=== PATIENT | female | born 1980 | race Caucasian/White ===

== ENCOUNTER 2017-11-12 21:35 | Emergency (ER) | payer MEDICAID, SELFPAY ==
[2017-11-12 21:37] VITALS: BP 164/105; PULSE 100; RESP 18; TEMP 37.3; O2SAT 98; BMI 21.8
--- NOTE | 2017-11-12 22:53 | ED.RN ---
PT LEFT WITHOUT BEING SEEN.
== END 2017-11-12 22:55 | disposition left against medical advice (07) ==
LOC: ED 23:44
PROVIDERS: Emergency Provider Emergency Medicine; Family Provider Student in an Organized Health Care Education/Training Program; PCP Student in an Organized Health Care Education/Training Program
DX: R69 Illness, unspecified (principal)

== ENCOUNTER 2017-12-13 16:57 | Emergency (ER) | payer MEDICAID, SELFPAY ==
[2017-12-13 16:58] VITALS: BP 166/96; PULSE 89; RESP 18; TEMP 36.6; O2SAT 99; BMI 21.6
--- NOTE | 2017-12-13 17:40 | ED.VISSUMM ---
- ER Visit Summary Date of Service: 12/13/17 Chief Complaint: Dental pain History of Present Illness: The patient is a 36 F who presents with dental pain that began today. Patient states a piece of her right upper third molar broke off today while she was eating. Patient states this happened approximately 1 hour prior to arrival. Patient denies any fevers or chills. Patient denies any difficulty breathing or difficulty swallowing. Patient states she was unable to see a dentist today. Physical Examination: Vital signs are stable. Patient is afebrile. Patient is in no acute distress. Oral mucosa is pink and moist. Oropharynx is clear. There is a class II dental fracture of the right upper third molar (#1). Neck is supple. Trachea is midline. There is no JVD noted. There is no sublingual edema noted. There is no cervical adenopathy noted. The remaining physical exam is within normal limits. Emergency Department Course and Treatment: Patient was given a prescription for Pen-Vee K. Patient was instructed to follow-up with the dentist in 3-5 days. Patient understood and was agreeable with the plan. All questions were answered. Disposition: Discharged home Impression: Dental fracture This note was generated with [employer] dictation software. It may contain incorrect words, spelling, and punctuation that were not noted in review of the chart prior to signing ED Disposition - Plan for ED Patient: Disposition: Home or Assisted Living Chief Complaint: Dental Diagnosis: Dental caries Instructions: ED Tooth Pain, ED Cavity Dental Prescriptions: Penicillin V Potassium 500 mg PO 4X/DAY #40 tab Referrals: Lonnie Coon DO [Primary Care Provider] -
== END 2017-12-13 18:27 | disposition home or self-care (01) ==
PROVIDERS: Emergency Provider Emergency Medicine; Family Provider Student in an Organized Health Care Education/Training Program; PCP Student in an Organized Health Care Education/Training Program
DX: S02.5XXA Fracture of tooth (traumatic), initial encounter for closed fracture (principal); X58.XXXA Exposure to other specified factors, initial encounter; Y93.9 Activity, unspecified; Y92.89 Other specified places as the place of occurrence of the external cause; Y99.9 Unspecified external cause status; K21.9 Gastro-esophageal reflux disease without esophagitis
CPT/HCPCS: 99282

== ENCOUNTER 2018-04-20 17:13 | Emergency (ER) | payer MEDICAID, SELFPAY ==
[2018-04-20 17:14] VITALS: BP 161/95; PULSE 83; RESP 16; TEMP 36.8; O2SAT 97; BMI 20.1
--- NOTE | 2018-04-20 17:48 | ED.VISSUMM ---
- ER Visit Summary Date of Service: 04/20/18 Chief Complaint: [Left leg pain] History of Present Illness: The patient is a 37 F [presents the emergency department complaint of left leg pain that started about 1 week ago. Patient states that her basement flooded and she was doing work in the basement to clean it up and the following morning woke up and had a lot of discomfort into her left buttock and down her left leg. Patient will have pain intermittently shooting down to her foot and occasionally will have some numbness and tingling. Patient denies any weakness in the extremity. She denies any change in bowel or bladder function. She denies any saddle anesthesia. Patient denies any recent travel or surgery. She has no history of PE or DVT. She is not on any oral contraceptive.] Physical Examination: [HEENT-PERRLA, EOMI. Cranial nerves II through XII grossly intact. TMs clear. Mucous membranes moist. No adenopathy. Cardiovascular-regular rate and rhythm without murmur or ectopy Lungs-clear to auscultation, chest wall stable without crepitus or subcu emphysema Abdomen-normoactive bowel sounds, soft, nontender, no rebound or rigidity, no peritoneal signs. Back exam-patient has no tenderness over the thoracic or lumbar spine. Patient does have tenderness palpation over the left buttock and piriformis that reproduces her pain. Patient has a positive straight leg raise with pain at about 45 degrees. Deep tendon reflexes are plus 2 out of 4 bilaterally at the patella and Achilles. Patient has normal L5 extension. Patient has normal sensation to light touch. Extremities-intact ?4, normal range of motion, normal pulses, atraumatic] Test Results: [None indicated] Emergency Department Course and Treatment: [] Treatment Plan: [Patient given a prescription for Naprosyn, [place], and Flexeril] Disposition: [Discharged home in stable condition] Impression: [Acute sciatica] This note was generated with [employer] dictation software. It may contain incorrect words, spelling, and punctuation that were not noted in review of the chart prior to signing ED Disposition - Plan for ED Patient: Referrals: Lonnie Coon DO [Primary Care Provider] -
--- NOTE | 2018-04-20 17:56 | ED.DCSUM_ITS ---
- ER Visit Summary Date of Service: 04/20/18 Chief Complaint: [Left leg pain] History of Present Illness: The patient is a 37 F [presents the emergency department complaint of left leg pain that started about 1 week ago. Patient states that her basement flooded and she was doing work in the basement to clean it up and the following morning woke up and had a lot of discomfort into her left buttock and down her left leg. Patient will have pain intermittently shooting down to her foot and occasionally will have some numbness and tingling. Patient denies any weakness in the extremity. She denies any change in bowel or bladder function. She denies any saddle anesthesia. Patient denies any recent travel or surgery. She has no history of PE or DVT. She is not on any oral contraceptive.] Physical Examination: [HEENT-PERRLA, EOMI. Cranial nerves II through XII grossly intact. TMs clear. Mucous membranes moist. No adenopathy. Cardiovascular-regular rate and rhythm without murmur or ectopy Lungs-clear to auscultation, chest wall stable without crepitus or subcu emphy sema Abdomen-normoactive bowel sounds, soft, nontender, no rebound or rigidity, no peritoneal signs. Back exam-patient has no tenderness over the thoracic or lumbar spine. Patient does have tenderness palpation over the left buttock and piriformis that reproduces her pain. Patient has a positive straight leg raise with pain at about 45 degrees. Deep tendon reflexes are plus 2 out of 4 bilaterally at the patella and Achilles. Patient has normal L5 extension. Patient has normal sensation to light touch. Extremities-intact ?4, normal range of motion, normal pulses, atraumatic] Test Results: [None indicated] Emergency Department Course and Treatment: [] Treatment Plan: [Patient given a prescription for Naprosyn, [place], and Flexeril] Disposition: [Discharged home in stable condition] Impression: [Acute sciatica] This note was generated with [employer] dictation software. It may contain incorrect words, spelling, and punctuation that were not noted in review of the chart prior to signing ED Disposition - Plan for ED Patient: Referrals: Lonnie Coon DO [Primary Care Provider] -
--- NOTE | 2018-04-20 17:56 | ED.DEP ---
ED Disposition - Plan for ED Patient: Instructions: ED Sciatica Prescriptions: Hydrocodone Bitart/Apap 5-325 [Vista 5MG-325MG] 1 tab PO Q4H PRN PRN 2 Days #20 tab PRN Reason: Pain Naproxen [Naprosyn] 500 mg PO BID PRN #20 tab Cyclobenzaprine [Flexeril] 10 mg PO TID PRN #20 tab PRN Reason: Muscle Spasm Referrals: Lonnie Coon DO [NON CLINICAL AFFILIATE] - 5-7 Days Angel Nazario MD [STAFF PHYSICIAN] - 5-7 Days
--- NOTE | 2018-04-20 18:01 | DCINST.ED_ITS ---
ED Disposition - Plan for ED Patient: Instructions: ED Sciatica Prescriptions: Hydrocodone Bitart/Apap 5-325 [Bergoo 5MG-325MG] 1 tab PO Q4H PRN PRN 2 Days #20 tab PRN Reason: Pain Naproxen [Naprosyn] 500 mg PO BID PRN #20 tab Cyclobenzaprine [Flexeril] 10 mg PO TID PRN #20 tab PRN Reason: Muscle Spasm Referrals: Lonnie Coon DO [NON CLINICAL AFFILIATE] - 5-7 Days Angel Nazario MD [STAFF PHYSICIAN] - 5-7 Days
== END 2018-04-20 18:06 | disposition home or self-care (01) ==
LOC: ED 17:55
PROVIDERS: Emergency Provider Emergency Medicine
DX: M54.30 Sciatica, unspecified side (principal)
CPT/HCPCS: 99282

== ENCOUNTER 2018-07-24 23:07 | Emergency (ER) | payer MEDICAID, SELFPAY ==
[2018-07-24 23:08] VITALS: BP 138/84; PULSE 90; RESP 15; TEMP 36.6; BMI 22.6
--- NOTE | 2018-07-24 23:33 | ED.DCSUM_ITS ---
- ER Visit Summary Date of Service: 07/24/18 Chief Complaint: Left sciatica History of Present Illness: The patient is a 37 F past medical history of prior sciatica. 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 She states that over the last several days she is developed pain in her left lower back at times radiates down her left buttock and left leg. No weakness or numbness. No bowel or bladder incontinence. No prior back history or surgery. She has had sciatica in the past. Physical Examination: No acute distress vital signs are stable afebrile. HEENT exam unremarkable. Neck nontender. Lungs clear to auscultation bilaterally. H eart regular rhythm no murmur. Abdomen soft nontender. She is moving all 4 extremities. There are neurovascular intact. 5 out of 5 evp and chief operating officer strength. 5 out of 5 dorsi plantar flexion. Positive straight leg raise at the left at about 15 to 30 degrees. Negative on the right. Normal touch sensation. Normal medial thigh sensation. No cauda equina or saddle anesthesia. Back spine is nontender. She has left SI tenderness. Right unremarkable. There is no signs of trauma nor any history of trauma. Test Results: None Emergency Department Course and Treatment: Naproxen p.o. Treatment Plan: Naproxen twice daily 10 days 20 no refill. Ice to the area. Follow-up with her primary care physician in [place] if not improving she may need an MRI. She and I discussed her diagnosis. Disposition: Discharge Impression: Acute left sciatica This note was generated with [employer] dictation software. It may contain incorrect words, spelling, and punctuation that were not noted in review of the chart prior to signing ED Disposition - Plan for ED Patient: Referrals: Care Physician,No Primary [Primary Care Provider] -
--- NOTE | 2018-07-24 23:33 | ED.DEP ---
ED Disposition - Plan for ED Patient: Disposition: Home or Assisted Living Instructions: ED Sciatica Prescriptions: Naproxen 375 mg PO BID #20 tab Referrals: Care Physician,No Primary [Primary Care Provider] - 1 Week if not improving Additional Instructions: Naproxen twice daily with food on your stomach. This is an anti-inflammatory should not down the inflammation and pain. Follow-up your primary care physician. If not improving you may need an MRI. Ice to the area.
[2018-07-24 23:50] VITALS: BP 136/86; PULSE 85; RESP 16; O2SAT 99
[2018-07-24] MEDS: Naproxen 500 MG Tablet PO (23:51)
== END 2018-07-24 23:52 | disposition home or self-care (01) ==
PROVIDERS: Emergency Provider Emergency Medicine
DX: M54.42 Lumbago with sciatica, left side (principal)
CPT/HCPCS: 99283

== ENCOUNTER → 2018-12-27 17:29 | Outpatient (CLI) | payer MEDICAID, SELFPAY ==
[2018-12-27 17:53] LABS: Amphetamine Urine VISTA POSITIVE (<1000 ng/mL); Barbiturate Urine VISTA NEGATIVE (< 200 ng/mL); Benzodiazepine Urine VISTA NEGATIVE (< 200 ng/mL); Cocaine Urine VISTA NEGATIVE (< 300 ng/mL); Ecstacy Urine VISTA NEGATIVE (< 500 ng/mL); Methadone Urine VISTA NEGATIVE (< 300 ng/mL); PCP Urine VISTA NEGATIVE (< 25 ng/mL); THC Urine VISTA POSITIVE (< 50 ng/mL); Vista UDS pH Range 5
== END ==
PROVIDERS: Referring Provider Anesthesiology Pain Medicine; Visit Provider Anesthesiology Pain Medicine
DX: F11.20 Opioid dependence, uncomplicated (principal)
CPT/HCPCS: 80307

== ENCOUNTER 2019-03-19 20:41 | Emergency (ER) | payer MEDICAID, SELFPAY ==
[2019-03-19] VITALS (9 sets, daily range): BP systolic 142–166; BP diastolic 65–106; PULSE 67–108; RESP 14–20; TEMP 37.2; O2SAT 98–100; BMI 19.3
--- NOTE | 2019-03-19 21:01 | ED.VISSUMM ---
- ER Visit Summary Date of Service: 03/19/19 Chief Complaint: Right wrist injury History of Present Illness: The patient is a 38 F who presents with right wrist injury that occurred today. Patient states she was rollerskating when she fell and landed on her right wrist. Patient states her pain is worse with any movement. Patient describes her pain as aching. Patient denies any snapping or popping sensation. Patient denies any head injury or loss of consciousness. Patient denies any other injuries. Physical Examination: Vital signs are stable. Patient is afebrile. Patient is in no acute distress. Oral mucosa is pink and moist. Neck is supple. Trachea is midline. There is no JVD. Musculoskeletal exam reveals tenderness over the right distal radius and wrist. There is some edema. There is no ecchymosis. There is a mild silver fork deformity. Range of motion was limited in all motions of the right wrist secondary to pain. Sensation was intact to light touch in the radial, median, and ulnar areas. Strength is 5/5 in the radial, median, and ulnar areas. Capillary refill is less than 2 seconds in all digits. Radial pulses are equal bilaterally. Test Results: X-rays of the right wrist were obtained. There is a comminuted fracture of the right distal radius. The distal fragment is angulated dorsally. This was interpreted by the radiologist and myself. Emergency Department Course and Treatment: Patient was given a dose of Orwell here. Patient was advised of the risks and benefits of sedation and reduction of her right distal radius. Patient is agreeable with the procedure. All questions were answered. Patient was given a total dose of 80 mg of propofol 4 mg of morphine. Patient was placed on the doctor of naprapathic medicine and nasal cannula oxygen. The right distal radius was reduced and a well-padded short arm AP splint was applied. Patient had no episodes of hypoxia during the procedure. Patient tolerated the procedure well. Patient was alert and oriented x3 after the procedure. Neurovascular exam was intact after placement of the splint. Repeat x-ray was obtained. There is improvement of the alignment of the fracture fragments. Patient was given a prescription for Orwell. Patient was instructed to maintain her splint until she follows up with orthopedics. Patient was instructed to follow-up with Dr. Car, who is on-call for orthopedics, in 3 to 5 days. Patient understood and was agreeable with the plan. All questions were answered. Disposition: Discharge home Impression: 1. Right distal radius fracture 2. Procedural sedation 3. Reduction of fracture by emergency physician This note was generated with [employer] dictation software. It may contain incorrect words, spelling, and punctuation that were not noted in review of the chart prior to signing ED Disposition - Plan for ED Patient: Disposition: Home or Assisted Living Diagnosis: Fracture of right distal radius Instructions: COLLES FRACTURE, Reduction Required Prescriptions: Hydrocodone Bitart/Apap 5-325 [Orwell 5MG-325MG] 1 tab PO Q6H PRN PRN 3 Days #10 tab PRN Reason: Pain Prescription Printed Referrals: NOT,DEFINED [NON-STAFF] - Alida Car DO [STAFF PHYSICIAN] - 3-5 Days
[2019-03-19] MEDS: HYDROcodone Bitartrate/Apap 5/325 Tablet PO (21:25)
--- NOTE | 2019-03-19 21:40 | RAD_ITS ---
STUDY: X-RAY - RIGHT WRIST REASON FOR EXAM: Female, 38 years old. Pain after falling. TECHNIQUE: 3 view(s) of the wrist were obtained. COMPARISON: None. FINDINGS: Acute comminuted fracture of the distal radius, impacted proximally with mild dorsal angulation. Small acute ulnar styloid fracture with medial displacement of the fractured tip. Alignment otherwise anatomic. No other fracture is evident. Normal bony mineralization. Adjacent soft tissue swelling. RAD/Wrist min 3 Views IMPRESSION: Acute comminuted fracture of the distal radius, impacted proximally with mild dorsal angulation. Small acute ulnar styloid fracture with medial displacement of the fractured tip. Electronically Signed: Zaki Duarte, at 22:11 EST Tel , Service support ,
[2019-03-19] MEDS: Morphine 4 MG/ML Syringe IM (22:35)
[2019-03-19] MEDS: Propofol 200 MG/20 ML Vial IV BOLUS (22:52)
--- NOTE | 2019-03-19 22:55 | RAD_ITS ---
STUDY: X-RAY - RIGHT WRIST REASON FOR EXAM: Female, 38 years old. Post reduction. TECHNIQUE: 3 view(s) of the wrist were obtained. COMPARISON: 9:38 PM same date. FINDINGS: Status post close reduction of the distal radial fracture. Alignment is improved with mild residual dorsal angulation. Small ulnar styloid tip fracture again demonstrated. Casting material now overlies the wrist. No new fractures are evident. RAD/Wrist min 3 Views IMPRESSION: Status post close reduction of the distal radial fracture. Alignment is improved with mild residual dorsal angulation. Electronically Signed: Zaki Duarte, at 23:32 EST Tel , Service support ,
== END 2019-03-19 23:19 | disposition home or self-care (01) ==
PROVIDERS: Emergency Provider Emergency Medicine
DX: S52.501A Unspecified fracture of the lower end of right radius, initial encounter for closed fracture (principal); W18.30XA Fall on same level, unspecified, initial encounter; Y93.51 Activity, roller skating (inline) and skateboarding; Y92.89 Other specified places as the place of occurrence of the external cause; Y99.8 Other external cause status
CPT/HCPCS: 25605; 73110; 96372; 99285; A4216

== ENCOUNTER → 2019-03-24 15:02 | Outpatient (CLI) | payer MEDICAID, SELFPAY ==
[2019-03-24 14:59] VITALS: BMI 19.3
--- NOTE | 2019-03-24 15:02 | RAD_ITS ---
STUDY: X-RAY - RIGHT WRIST REASON FOR EXAM: Female, 38 years old. fracture TECHNIQUE: 3 view(s) of the wrist were obtained. COMPARISON: None. FINDINGS: No change in the nondisplaced nonangulated transverse fracture the distal metaphysis of the radius. Normal radiocarpal articulation. Normal distal radioulnar articulation. Normal carpal bones. Normal carpal articulations. Normal carpometacarpal articulation of the thumb. Normal second through fifth carpometacarpal articulations. Normal visualized metacarpal bones. Fiberglas cast a vascular soft tissue and bony detail. RAD/Wrist min 3 Views IMPRESSION: No change in nondisplaced nonangled transverse fracture of the distal metaphysis of the radius. Electronically Signed: Norm Haque MD at 9:38 EST Tel , Service support ,
== END ==
PROVIDERS: Referring Provider Physician Assistant; Visit Provider Physician Assistant
DX: S52.91XA Unspecified fracture of right forearm, initial encounter for closed fracture (principal)
CPT/HCPCS: 73110

== ENCOUNTER → 2019-03-28 15:06 | Outpatient (CLI) | payer MEDICAID, SELFPAY ==
[2019-03-24 14:59] VITALS: BMI 19.3
--- NOTE | 2019-03-28 15:08 | CT_ITS ---
STUDY: CT WRIST WITHOUT CONTRAST RIGHT REASON FOR EXAM: Female, 38 years old. RIGHT WRIST FX- 1 WEEK AGO ROLLER SKATING RADIATION DOSAGE (If Supplied By Facility): CTDIvol = ( 20.42 ) mGy, DLP = ( 373.87 ) mGycm. Individualized dose optimization techniques were used for this CT.? TECHNIQUE: Thorax images of the wrist were obtained from the distal forearm to the distal metacarpals. Sagittal coronal reformatted images are performed. The patient is in a cast. COMPARISON: March 24, 2019 wrist x-ray FINDINGS: There is a comminuted intra-articular fracture of the distal radius with minimal posterior or dorsal displacement of the distal fragments with soft tissue edema. The fracture line extends into the radial and radial carpal joints. There is a trace suggestion of an avulsion injury from the ulnar styloid process. No additional fracture is appreciated. CT/Extremity Upper without Contra IMPRESSION: Comminuted nondisplaced fracture of the distal radius with intra-articular extension. Tiny avulsion injury of the ulnar styloid process. Electronically Signed: Amber Perez MD at 16:47 EST Tel , Service support ,
== END ==
PROVIDERS: Referring Provider Physician Assistant; Visit Provider Physician Assistant
DX: S52.91XA Unspecified fracture of right forearm, initial encounter for closed fracture (principal)
CPT/HCPCS: 73200

== ENCOUNTER → 2019-03-29 | Outpatient (CLI) | payer MEDICAID, SELFPAY ==
[2019-03-24 14:59] VITALS: BMI 19.3
--- NOTE | 2019-03-29 14:38 | RAD_ITS ---
STUDY: X-RAY - RIGHT WRIST REASON FOR EXAM: Follow-up wrist fracture. TECHNIQUE: 3 view(s) of the wrist were obtained. COMPARISON: Radiographs 03/24/2019. FINDINGS: There is no interval change of the comminuted intra-articular fracture of the distal radius. There is a very small avulsion fracture of the ulnar styloid process. Normal radiocarpal articulation. Normal distal radioulnar articulation. Normal carpal bones. Normal carpal articulations. Normal carpometacarpal articulation of the thumb. Normal second through fifth carpometacarpal articulations. Normal visualized metacarpal bones. There is an overlying cast. RAD/Wrist min 3 Views IMPRESSION: No interval change of distal radial fracture. Electronically Signed: Stu Bryant MD at 15:30 EST Tel , Service support ,
== END | disposition home or self-care (01) ==
LOC: HPRAD 14:38
PROVIDERS: Referring Provider Orthopaedic Surgery; Visit Provider Orthopaedic Surgery
DX: S52.571D Other intraarticular fracture of lower end of right radius, subsequent encounter for closed fracture with routine healing (principal)
CPT/HCPCS: 73110

== ENCOUNTER 2019-03-30 12:29 | Day surgery (SDC) | payer MEDICAID, SELFPAY ==
--- NOTE | 2019-03-29 03:03 | HP_ITS ---
insert hnp no changes Intake Vital Signs 03/29/19 BMI 19.3 Intake Visit Reasons: RIGHT WRIST Is patient in pain?: Yes Allergies No Known Allergies Allergy (Verified 03/29/19 14:13) Medications Naproxen 375 mg PO BID #20 tab 07/24/18 [Rx Confirmed 03/29/19] omeprazole 20 mg tablet,delayed release 20 mg PO DAILY 03/29/19 [History Confirmed 03/29/19] PFSH Family History (Updated 03/29/19 @ 14:25 by Sin Porras) Grandmother Breast cancer Social History (Updated 03/29/19 @ 16:08 by Alida Car DO) Smoking Status: Current some day smoker HPI RIGHT WRIST: Surgical H&P: Yes Details: Parts of this documentation were recorded by a scribe, this documentation accurately reflects the service provided and the decisions made by me, Alida Car DO 03/29/19 1410. DENIA SKAGGS is a 38 year old F here today for a followup on her right wrist. She states that she continues to have significant pain. She was unable to sleep last night due to pain. She has kept her splint on at all times. She has been icing. Patient is able to move her fingers. Denies numbness, tingling or other associated symptoms. Patient is taking aleve, tylenol and ibuprofen for pain, which the aleve is helpful. Patient had her CT scan which is here for review. ROS Musc Reports joint pain, Denies joint swelling, Denies stiffness Skin/Breast Reports system reviewed and no additional complaints, except as docu Neuro Yes system reviewed and no additional complaints, except as docu no rhales, rhonchi, wheezing, no abd pain, no audible bruits Ortho Exam Right Wrist/Hand Skin/Wound: Yes Swelling WRIST: patient is in a splint, nvi Left Wrist/Hand Skin/Wound: Yes Swelling Assessment & Plan Problems 1. Other intraarticular fracture of lower end of right radius, subsequent encounter for closed fracture with routine healing S52.571D Plan X-rays were reviewed. There is displacement of the fracture noted compared to recent CT scan. Reviewed the post op restrictions and return to normal activities sooner with surgery. Reviewed the pre-operative plans with the patient. Risks and benefits of the procedure were fully explained, including but not limited to infection, neurovascular injury, continued pain, arthritis, stiffness, need for further surgery, re-injury, DVT, PE, general risks of anesthesia, and loss of limb or life. The patient understands all the risks and does wish to proceed with written consent. Follow up post op or sooner if pain, swelling, numbness or associated symptoms, or concerns develop. All questions answered. Patient in agreement of plan. Orders Orders: Wrist min 3 Views Today S52.578B Coding Level of Care Code Off vis,est,level 4 Diagnoses Other intraarticular fracture of lower end of right radius, subsequent encounter for closed fracture with routine healing S52.571D 03/29/19 1608 <Electronically signed by Alida martinez DO> Date _ Alida Car DO
[2019-03-29 14:47] VITALS: BMI 19.3
[2019-03-30 12:56] LABS: Internal QC Validated? YES +Cl - CLEAR BKGD; Pregnancy, Urine Negative Negative
[2019-03-30 12:58] VITALS: BP 141/71; PULSE 63; RESP 15; TEMP 36.8; O2SAT 99
[2019-03-30] MEDS: Lactated Ringers 1,000 ML 100 ML IV ×2 (13:12→15:46)
--- NOTE | 2019-03-30 14:00 | RAD_ITS ---
STUDY: X-RAY - RIGHT WRIST REASON FOR EXAM: ORIF distal radial fracture. TECHNIQUE: 3 intraoperative images of the wrist were obtained. COMPARISON: Radiographs 03/29/2019. FINDINGS: There is an orthopedic plate and screws transfixing a distal radial fracture in anatomic alignment and position. There is a very small avulsion fracture of the ulnar styloid process. Electronically Signed: Stu Bryant MD at 15:46 EST Tel , Service support , RAD/Wrist min 3 Views
[2019-03-30] MEDS: Cefazolin 2 GM in 0.9% Normal Saline 100 ML IV (14:02)
[2019-03-30] MEDS: Mupirocin Ointment 22gm Tube 1 APPLIC (15:05)
--- NOTE | 2019-03-30 15:16 | DCINST_ITS ---
Discharge Diet: No Restrictions - non weight bearing right arm, keep splint clean/dry/intact, follow up in 2 weeks and call with concerns, Discharge Activity: May Not Drive May shower in (days): 1 Ice area for (Minutes): 20 - Every hour while awake. Weight Bearing Status: Weight bearing as tolerated Keep extremity elevated above heart level: Operative Extremity Call your doctor if your incision/area has: Continuous Slow Oozing, Sudden Increased Bleeding, Increased Pain/ Swelling, Increased Redness, Foul Smelling Discharge Call your doctor if you observe: Fever of 101 or Higher, Coldness, Increased Pain, Numbness or Tingling, Change in Color, Calf discomfort Allergies/Adverse Reactions: Allergies No Known Allergies Allergy (Verified 03/30/19 12:57) Medications to take at Discharge Naproxen 375 mg PO BID #20 tab 07/24/18 omeprazole 20 mg tablet,delayed release 20 mg PO DAILY 03/29/19 Oxycodone HCl/Acetaminophen [Percocet 5/325] 1 - 2 tab PO Q6H PRN PRN 5 Days #28 tab 03/30/19 The following prescriptions were given: Oxycodone HCl/Acetaminophen [Percocet 5/325] 1 - 2 tab PO Q6H PRN PRN 5 Days #28 tab PRN Reason: Pain Transmission Status: Received by [facility] Primary Care Physician: Lonnie Coon [Primary Care Provider] - Test Results: Test results from this visit will be discussed in further detail at your follow- up appointment, if applicable. Please Follow Up With: Alida Car, DO - [phone]
--- NOTE | 2019-03-30 15:18 | PCM.OPRPT ---
Report of Operation Date of Procedure: 03/30/19 Pre-Operative Diagnosis: right distal intraarticular fracture/displaced Post-Operative Diagnosis: same Surgery/Procedure Performed:: orif right intraarticular distal radius spa experience coordinator: Vinay Rai Type of Anesthesia:: General Anesthesiologist: Franklin Luis Specimen's removed: tt-47 min Estimated Blood Loss (mL): 20cc Fluids Replaced: 800ml lr Description of Procedure: Preop note Patient is a 38-year-old female who was rollerskating and fell onto her right outstretched hand. She was closed reduced in the ER and splinted. Patient was seen in our office and she had adequate alignment however did show an intra-articular split both radiocarpal and radial ulnar. We did a CT scan that showed it was displaced more in the dorsally angulated. She had lost a little bit of her radial inclination but with still adequately maintained but again her dorsal tilt was worse. We discussed treatment options continued conservative care with a splint versus cast versus ORIF. Patient elected proceed with ORIF she did not want to be in a cast for more than 2 weeks. Risk benefits and alternatives were discussed with patient. Risk including but not limited to blood loss, blood clot, infection, neurovascular, failure procedure, loss of life and loss of limb. Patient is aware of like proceed with ORIF of her right distal radius. Operative note Patient seen and examined preoperative holding area right arm was marked. Patient is brought to the operating room placed supine on the operating table. Sign, anesthesia, antibiotics were administered. The right arm was prepped and draped in usual sterile fashion with tourniquet around her upper arm. All bony prominences well-padded SCDs placed on her contralateral bilateral lower extremity. We then used fluoroscopy to ascertain the level of the incision. We then elevate exsanguinated and tourniquet was raised her pressure of 250 torr. We had centered the incision over the FCR please note. We then used a 15 blade to cut through the skin dissect down with tenotomies to the FCR the FCR was then brought to ulnarly we dissected to the FCR fascia down the pronator quadratus pronator quadratus was then dissected sharply off of its radial border making sure to protect all neurovascular pressures at all times. After the progenitor pronator quadratus was swept ulnarly we then able to visualize the fracture site we were able to then irrigate use a bone pick to bring any debris we then reduced it little bit more of a volar inclination and volar angle. We then picked out our 3 5 DCP plate [employer]ynthe[employer]. We placed the plate distally first in order to in a kickstand technique in order to facilitate increased volar angulation with placing her shaft screws. We placed our screws distally in standard technique we placed fourth cortical screws and 3 locking screws. We then placed the shaft screw in a kickstand we brought the shaft tour driver with the plate was locked off the Bentyl but then bringing the suture down to bone did also bring back are volar inclination. We then filled the remaining 2 holes of the with 3 5 cortical screws. We then visualized multiple planes good reduction of her fracture site which we had done throughout the case as well. We irrigated the incision with copious amounts of sterile saline we placed the pronator quadratus back on the plate covering the plate. We sewed the skin with 2-0 Vicryl in a running 4 Monocryl. Sterile dressings were applied and a splint was applied. Patient tolerated procedure well no complication transferred recovery room in stable condition. Postoperative note Neurovascular intact postoperatively Call with increased pain numbness tingling further issues arise Discussed with boyfriend findings Follow-up in 2 weeks Fatou disclaimer Pharmacy has prescription Grafts/Implants Used: synthes distal dcp plate
[2019-03-30 15:30] VITALS: BP 141/71; BP 156/90; PULSE 79; RESP 18; TEMP 36.7; O2SAT 99
[2019-03-30 15:45] VITALS: BP 141/71; BP 142/69; PULSE 74; RESP 18; O2SAT 100
[2019-03-30 16:00] VITALS: BP 141/71; BP 156/76; PULSE 74; RESP 18; O2SAT 99
[2019-03-30 16:15] VITALS: BP 124/70; BP 141/71; PULSE 62; RESP 18; TEMP 36.8; O2SAT 100
[2019-03-30 16:38] VITALS: BP 141/71; BP 143/81; PULSE 65; RESP 20; TEMP 37.1; O2SAT 100
== END 2019-03-30 16:53 | disposition home or self-care (01) ==
LOC: SDC 12:30 → AC 12:31
PROVIDERS: Anesthesiology; PCP Student in an Organized Health Care Education/Training Program; Referring Provider Orthopaedic Surgery; Visit Provider Orthopaedic Surgery
PROC: (CPT 25608; principal; 2019-03-30 13:45)
DX: S52.571A Other intraarticular fracture of lower end of right radius, initial encounter for closed fracture (principal); F17.200 Nicotine dependence, unspecified, uncomplicated; K21.9 Gastro-esophageal reflux disease without esophagitis; Z79.1 Long term (current) use of non-steroidal anti-inflammatories (NSAID); Z79.899 Other long term (current) drug therapy; W18.30XA Fall on same level, unspecified, initial encounter; Y93.51 Activity, roller skating (inline) and skateboarding; Y92.89 Other specified places as the place of occurrence of the external cause; Y99.8 Other external cause status
CPT/HCPCS: 25608; 73110; 76000; 81025; C1713; J7120; J2405

== ENCOUNTER → 2019-04-15 | Outpatient (CLI) | payer MEDICAID, SELFPAY ==
--- NOTE | 2019-04-15 09:15 | RAD_ITS ---
HISTORY: POST OP ADDITIONAL HISTORY: None provided. TECHNIQUE: 03/29/2019 Number of images including paperwork: 3 COMPARISON: None FINDINGS: BONES: Volarly applied plate and multiple screws are present transfixing the comminuted, intra-articular fracture of the right distal radius. Alignment is near-anatomic. Ulnar styloid fracture appears similar. JOINTS: No subluxation. SOFT TISSUES: No distinct foreign body. Soft tissue swelling. RAD/Wrist min 3 Views IMPRESSION: Status post ORIF of right distal radius fracture. at 0035 Reported and signed by: Lisette Manuel MD Electronically Signed: Lisette Manuel MD at 0:35 EST Tel , Service support ,
== END | disposition home or self-care (01) ==
LOC: HPRAD 09:15
PROVIDERS: PCP Student in an Organized Health Care Education/Training Program; Referring Provider Physician Assistant; Visit Provider Physician Assistant
DX: Z47.89 Encounter for other orthopedic aftercare (principal)
CPT/HCPCS: 73110